=== PATIENT | male | born 1940 | race African-American/Black ===

== ENCOUNTER 2019-05-10 12:08 | Outpatient (CLI) | payer MEDICARE, BC ==
--- NOTE | 2019-05-10 13:44 | MRI ---
MR the lumbar spine without contrast: 05/10/2019 History: Lumbar stenosis with neurogenic claudication COMPARISON: 01/09/2016 TECHNIQUE: Multiplanar multisequence MR images were obtained of lumbar spine without IV contrast FINDINGS: On the basis of 5 lumbar type vertebral bodies, conus medullaris terminates at theL1-2 level. Sagittal STIR imaging demonstrates edematous degenerative endplate change at the L1-2 level centrally and to the right of midline. T12-L1: Disc desiccation and mild disc space narrowing. Mild bilateral facet hypertrophy. Mild centra l canal stenosis and mild bilateral neural foraminal stenosis. L1-2:Disc space narrowing and disc desiccation with disc bulge present. Prominent bilateral facet hyp ertrophy and hypertrophy of the ligamentum flavum. Moderate central canal stenosis with moderate/severe right lateral recess stenosis, worsened since the prior exam. Vacuum disc formation n oted. Mild left and moderate/severe right neural foraminal stenosis. L2-3:Disc space narrowing with disc desiccation and disc bulge. Prominent bilateral facet hypertrophy and hypertrophy of the ligamentum flavum with moderate/severe central canal stenosis, slightly worsened. Mild/moderate bilateral neural foraminal stenosis, left greater than right. L3-4:There is disc space narrowing and disc desiccation with disc osteophyte complex causing a modera te degree of central canal stenosis, similar when compared to prior imaging. Bilateral facet hypertrophy noted with severe right and moderate left neural foraminal stenosis. L4-5:Prominent facet hypertrophy and hypertrophy of ligamentum flavum. Stable mild central canal sten osis. There bilateral neural foraminal stenosis. L5-S1:Disc space narrowing and disc desiccation with mild disc bulge. No associated central canal mikhail nosis. Bilateral facet hypertrophy with moderate right and severe left neural foraminal stenosis. Image retroperitoneal structures demonstrateno acute findings. Incompletely imaged T2 hyperintense le jenni of the lower pole right kidney suggesting an incompletely imaged large right renal cyst.. IMPRESSION: Prominent multilevel degenerative change within the lumbar spine as detailed above.
--- NOTE | 2019-05-10 14:03 | RAD ---
Lumbar spine 4 views: 05/10/2019 COMPARISON: None HISTORY: Lumbar stenosis with neurogenic claudication FINDINGS: There is a minimal degree of degenerative levoscoliosis centered at the L2-3 level. There i s prominent multilevel disc space narrowing and degenerative endplate change with associated anterior osteophyte formation, most significant at L1-2, L2-3, and L3-4. Multilevel lower lumbar spin e facet hypertrophy. Neutral lateral examination demonstrates no significant anterolisthesis or retrolisthesis within the lumbar spine. With flexion there is anterolisthesis at the L5-S1 level teressa uring approximately 5-6 mm. Upon extension this anterolisthesis is not clearly visualized. No acute fracture is appreciated. Bilateral L5 pars defects are noted. IMPRESSION: Bilateral L5 pars defects with mild anterolisthesis at L5-S1 upon flexion measuring up to 6 mm.
== END 2019-05-10 12:09 | disposition home or self-care (01) ==
LOC: BICMRI 12:08
PROVIDERS: ATTEND Nurse Practitioner Family
DX: M48.062 Spinal stenosis, lumbar region with neurogenic claudication (principal); M43.16 Spondylolisthesis, lumbar region; M47.816 Spondylosis without myelopathy or radiculopathy, lumbar region; M47.817 Spondylosis without myelopathy or radiculopathy, lumbosacral region
CPT/HCPCS: 72110; 72148

== ENCOUNTER 2019-07-01 10:43 | Outpatient (CLI) | payer MEDICARE, BC ==
--- NOTE | 2019-07-01 11:44 | RAD ---
2 views left hip: 07/01/2019 COMPARISON: None HISTORY: Pain FINDINGS: Mild superior joint space narrowing. No displaced fracture or dislocation. There are postop erative clips along the medial aspect of the left upper thigh. There is extensive atherosclerotic calcification involving the arterial structures of the upper thigh medially. IMPRESSION: No displaced fracture or evidence of dislocation is seen.
--- NOTE | 2019-07-01 12:38 | RAD ---
RIGHT HIP 2 VIEWS: Date: 07/01/2019 HISTORY: Right hip pain. FINDINGS: There is no significant joint space narrowing. There is some minimal osteophytic change along the ryan tabulum. Bones appear demineralized. Vascular calcifications are seen. IMPRESSION: No acute findings. No significant joint space narrowing. Extensive atherosclerosis. POS: TPC
--- NOTE | 2019-07-01 12:48 | RAD ---
2 views left hip: 07/01/2019 COMPARISON: None HISTORY: Pain FINDINGS: Mild superior joint space narrowing. No displaced fracture or dislocation. There are postop erative clips along the medial aspect of the left upper thigh. There is extensive atherosclerotic calcification involving the arterial structures of the upper thigh medially. IMPRESSION: No displaced fracture or evidence of dislocation is seen. Transcribed Date/Time: 07/01/2019 12:48 PM
== END 2019-07-01 10:44 | disposition home or self-care (01) ==
LOC: TBSIIMAG 10:43
PROVIDERS: ATTEND Neurological Surgery
DX: M25.559 Pain in unspecified hip (principal); I70.201 Unspecified atherosclerosis of native arteries of extremities, right leg

== ENCOUNTER 2019-11-26 06:32 | Outpatient (CLI) | payer MEDICARE, BC, OTHER ==
[2019-11-26 11:37] LABS: Hemoglobin 12.9 g/dL (14.0-18.0); Mean Corpuscular HGB CONC 32.7 g/dL (32.0-36.0); Mean Corpuscular Hemoglobin 30.2 pg (27.0-31.0); Mean Corpuscular Volume 92.3 fL (78.0-98.0); Mean Platelet Volume 9.9 fL (7.4-10.4); Platelet Count 231 thou/uL (130-400); Red Blood Cell (RBC) Count 4.28 mill/uL (4.70-6.10)
[2019-11-26 12:43] LABS: Anion Gap 13 mmol/L (10-20); BUN (Urea Nitrogen) 12 mg/dL (8.4-25.7); Calc. Creatinine Clearance 0 mL/min (70-130); Calcium 9.2 mg/dL (7.8-10.44); Carbon Dioxide 22 mmol/L (23-31); Chloride 109 mmol/L (98-107); Estimated GFR-MDRD Greater than 90; Glucose 114 mg/dL (83-110); Sodium 140 mmol/L (136-145)
[2019-11-27 12:17] LABS: SARS-CoV-2 MS2 Positive; SARS-CoV-2 N Gene Negative; SARS-CoV-2 S Gene Negative; SARS-CoV-2 orf1ab Negative
== END 2019-11-26 06:33 | disposition home or self-care (01) ==
LOC: LABBT 06:32
PROVIDERS: ATTEND Neurological Surgery
DX: Z01.818 Encounter for other preprocedural examination (principal); Z11.59 Encounter for screening for other viral diseases; M54.16 Radiculopathy, lumbar region
CPT/HCPCS: 80048; 85027; 93005; U0003; 87635; 93010

== ENCOUNTER 2019-12-01 05:31 | Day surgery (SDC) | payer MEDICARE, BC ==
[2019-11-24 12:57] VITALS: BMI 28.9
--- NOTE | 2019-11-30 14:59 | HP ---
HISTORY OF PRESENT ILLNESS: Mr. Perera is a pleasant 79-year-old man, here today to discuss several years of lower back discomfort as well as more recently a severe right-sided groin pain. He has been seeing Dr. Harrell, who has been providing epidural steroid injections at L1-L3, which have helped him through a note that he has pain particularly when walking. He denies numbness nor weakness. He walks well without assistance. MRI reveals multilevel spinal stenosis, most significant from L1-L3, which is graded as severe. He has scattered foraminal stenosis elsewhere, but no obvious radicular symptoms. PHYSICAL EXAMINATION: He is alert and oriented x3. Gait is normal. No ataxia. Lower extremity motor exam is normal. He does have a mildly positive right Romulo's maneuver. We did obtain x-rays of the bilateral hips, which all looked without significant degenerative disease. He hopes to discuss possible surgical intervention. PAST MEDICAL HISTORY: Significant for diabetes, coronary arterial disease, hypertension. PAST SURGICAL HISTORY: Unspecified heart surgery and appendectomy. SOCIAL HISTORY: Denies tobacco, drug, or alcohol use. ALLERGIES: NO KNOWN DRUG ALLERGIES. MEDICATIONS: 1. Carvedilol. 2. Entresto. 3. Humalog. 4. Hydralazine. 5. Kombiglyze. 6. Aspirin. 7. Losartan. 8. Rosuvastatin. 9. P.r.n. pain medications. ASSESSMENT: Lumbar spinal stenosis. PLAN: Dr. Marino met with the patient, reviewed imaging, and advocated for L1-L3 decompression. He explained to the patient risks, benefits, and alternatives to the procedure. The patient expressed understanding and elected to move forward with surgery as discussed. I do believe the patient is mentally competent and capable of making medical decisions for himself. We will move forward with surgery as planned. Job ID: [id number]
[2019-12-01] MEDS ORDERED: Thrombin 5000 UNITS/5 ML VIAL ONE (06:20)
[2019-12-01] MEDS ORDERED: Bupivacaine PF 0.5% 30 ML VIAL ONE (06:20)
[2019-12-01] MEDS ORDERED: EPINEPHrine 1 MG/ML AMP ONE (06:20)
[2019-12-01] MEDS ORDERED: Fentanyl 100 MCG/2 ML VIAL ONE (06:52)
[2019-12-01] MEDS ORDERED: SUGAMMADEX SODIUM 200 MG/2 ML VIAL ONE (07:58)
[2019-12-01] MEDS ORDERED: Tamsulosin HCl 0.4 MG CAP ONE (09:03)
[2019-12-01] MEDS ORDERED: Succinylcholine Chloride 20 MG/ML 10 ml SYRINGE FS ONE (09:03)
--- NOTE | 2019-12-01 09:58 | OP ---
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 DIAGNOSIS: Lumbar stenosis. PROCEDURES PERFORMED: L1 through L3 lumbar decompression. ANESTHESIA: General. DESCRIPTION OF PROCEDURE: The patient was brought into the operating room and placed under general anesthesia. He was flipped from the supine to prone position on the operating room table. A linear incision was planned spanning L1 through L3. After prepping and draping and after an appropriate preoperative pause, the incision was created. The soft tissues were swept away from midline. Self-retaining retractors were placed in the wound for optimal exposure. After confirming the appropriate level with C-arm fluoroscopy, an Adson rongeur was used to remove the spinous process of L2, the inferior aspect of L1, and the superior aspect of L3. A high-speed cutting drill bit as well as 2, 3, and 4 mm Kerrisons were used to complete the laminectomy. The laminectomy was extended laterally to encompass the medial aspect of the facet joints. After decompressing the segment spanning L1 through L3, the wound was irrigated. Hemostasis was maintained throughout. The wound was then closed in anatomic layers, and a pressure dressing was applied. There were no known procedural complications. Job ID: [id number]
[2019-12-01] MEDS ORDERED: Metoclopramide HCl 10 MG/2 ML VIAL ONE (10:35)
[2019-12-01] MEDS ORDERED: Ondansetron PF 4 MG/2 ML Vial ONE (10:35)
[2019-12-01] MEDS ORDERED: Rocuronium Bromide 10 MG/ML (10ML VIAL) ONE (10:35)
[2019-12-01] MEDS ORDERED: EPHEDRINE 25 MG/5 ML SYRINGE ONE (10:35)
[2019-12-01] MEDS ORDERED: Lidocaine 1% PF 5 ML VIAL ONE (10:35)
[2019-12-01] MEDS ORDERED: Ketorolac Tromethamine 30 MG/ML VIAL ONE (10:35)
[2019-12-01] MEDS ORDERED: PROPOFOL 200 MG/20 ML VIAL ONE (10:35)
[2019-12-01] MEDS ORDERED: PHENYLEPHRINE-NS 100 MCG/ML 10 ML SYRINGE ONE (10:35)
[2019-12-01] MEDS ORDERED: Morphine 2 MG/ML VIAL ONE (12:15)
[2019-12-01] MEDS ORDERED: traMADol HCl 50 MG TAB ONE (12:56)
== END 2019-12-01 13:10 | disposition home or self-care (01) ==
LOC: SDC 05:31
PROVIDERS: ATTEND Neurological Surgery
PROC: 00NY0ZZ Release Lumbar Spinal Cord, Open Approach (ICD-10-PCS; principal; 2019-12-01)
DX: M48.061 Spinal stenosis, lumbar region without neurogenic claudication (principal); M54.16 Radiculopathy, lumbar region; I10 Essential (primary) hypertension; I25.10 Atherosclerotic heart disease of native coronary artery without angina pectoris; E11.9 Type 2 diabetes mellitus without complications; Z79.4 Long term (current) use of insulin; Z79.82 Long term (current) use of aspirin; Z79.899 Other long term (current) drug therapy; Z95.1 Presence of aortocoronary bypass graft
CPT/HCPCS: 76000; J0171; J0690; J1885; J2270; J2405; J2704; J2765; J3010; S0020

== ENCOUNTER 2020-12-28 | Outpatient (CLI) | payer MEDICARE, BC | END 2020-12-28 12:08 | disposition home or self-care (01) ==

== ENCOUNTER 2023-05-22 18:38 | Emergency (ER) | payer MEDICARE, BC ==
[2023-05-22 19:28] LABS: #Eosinphils 0.1 thou/uL (0.0-0.7); #Monocytes 0.9 thou/uL (0.11-0.59); #Neutrophils 4.8 thou/uL (1.40-6.50); %Basophils 0.3 % (0.0-1.0); %Eosinophils 1.3 % (0.0-10.0); %Lymphocytes 21.7 % (21.0-51.0); %Monocytes 12.2 % (0.0-10.0); %Neutrophils 64.4 % (42.0-75.0); Hematocrit 40.6 % (42.0-52.0); Hemoglobin 13.5 g/dL (14.0-18.0); Mean Corpuscular HGB CONC 33.3 g/dL (32.0-36.0); Mean Corpuscular Hemoglobin 29.7 pg (27.0-31.0); Mean Corpuscular Volume 89.4 fl (78.0-98.0); Mean Platelet Volume 10.8 fL (7.4-10.4); Platelet Count 178 10x3/uL (130-400); Red Blood Cell (RBC) Count 4.54 mill/uL (4.70-6.10); White Blood Cell (WBC) Count 7.5 10x3/uL (4.8-10.8)
[2023-05-22 19:50] LABS: ALT (SGPT) 17 U/L (8-55); AST (SGOT) 15 U/L (5-34); Albumin 4.2 g/dL (3.4-4.8); Alkaline Phosphatase 69 U/L (40-110); Anion Gap 13 mmol/L (10-20); BUN (Urea Nitrogen) 17 mg/dL (8.4-25.7); Bilirubin, Total 0.7 mg/dL (0.2-1.2); Calc. Creatinine Clearance 0 mL/min (70-130); Calcium 8.9 mg/dL (7.8-10.44); Carbon Dioxide 22 mmol/L (23-31); Chloride 106 mmol/L (98-107); Estimated GFR 70; Globulin 2.9 g/dL (2.4-3.5); Glucose 162 mg/dL (83-110); Potassium 4.1 mmol/L (3.5-5.1); Protein, Total 7.1 g/dL (5.8-8.1); Sodium 137 mmol/L (136-145)
[2023-05-22 19:54] LABS: Troponin I Less than 0.010 ng/mL (< 0.028)
[2023-05-22 20:46] LABS: Bacteria/HPF None Seen HPF (None Seen); Bilirubin Negative (Negative); Blood, Urine Negative (Negative); CAUTI Indications for Culture Alt mental st,lethar; Clarity Clear (Clear); Glucose, Urine (Dipstick) Normal (Negative); Ketone, Urine Negative (Negative); Leukocyte Negative Leu/uL (Negative); Nitrite Negative (Negative); Protein, Urine (Dipstick) 20 mg/dL (Neg-Trace); RBC/HPF 0-3 HPF (0-3); Specific Gravity, Urine 1.026 (1.002-1.036); Squamous Epithelial 0-3 HPF (0-3); Urobilinogen 3 mg/dL (Less than 2); WBC/HPF 0-3 HPF (0-3); pH, Urine 5.5 (5.0-9.0)
[2023-05-22 20:49] LABS: Urine Culture Reflex No No
== END 2023-05-22 21:13 | disposition home or self-care (01) ==
LOC: ERS 18:38
DX: T42.8X1A Poisoning by antiparkinsonism drugs and other central muscle-tone depressants, accidental (unintentional), initial encounter (principal); R41.82 Altered mental status, unspecified; I10 Essential (primary) hypertension; E10.9 Type 1 diabetes mellitus without complications; I25.10 Atherosclerotic heart disease of native coronary artery without angina pectoris; E78.5 Hyperlipidemia, unspecified; Z79.899 Other long term (current) drug therapy
CPT/HCPCS: 36415; 36416; 70450; 80053; 81001; 83880; 84484; 85025

== ENCOUNTER 2025-01-30 09:53 | Emergency (ER) | payer MEDICARE, BC | END 2025-01-30 10:35 | disposition home or self-care (01) | LOC: ERS 09:53 | DX: M54.14 Radiculopathy, thoracic region (principal); I10 Essential (primary) hypertension; I25.10 Atherosclerotic heart disease of native coronary artery without angina pectoris; E10.9 Type 1 diabetes mellitus without complications; Z95.5 Presence of coronary angioplasty implant and graft | CPT/HCPCS: 99283 ==